=== PATIENT | female | born 1960 | race African-American/Black ===

== ENCOUNTER 2017-07-10 20:12 | Emergency (ER) | payer MEDICAID ==
[~2017-07-10] VITALS: Ht 162.6 cm; Wt 69.4 kg
[~2017-07-10 20:12] MED LIST: CYCLOBENZAPRINE10 MG ORAL; IBUPROFEN600 MG ORAL; NORCO 5-325 TA1 EACH ORAL
[2017-07-10 20:33] VITALS: BP 117/73
[2017-07-10] MEDS ORDERED: Isovue-300 100ml vial INJ PRN (20:45)
[2017-07-10] MEDS ORDERED: Lidocaine 2% Visc 15ml soln ORAL ONE (20:45)
[2017-07-10] MEDS ORDERED: Dicyclomine HCl 10mg/5ml oral soln ORAL ONE (20:45)
[2017-07-10] MEDS ORDERED: Mylanta II UD 30ml ORAL ONE (20:45)
[2017-07-10 21:33] LABS: BASOPHILS % (AUTO) 0.9 % (0.0-2.0); EOSINOPHILS % (AUTO) 2.3 % (0.0-3.0); HEMOGLOBIN 13.7 G/DL (12.0-16.0); LYMPHOCYTES % (AUTO) 40.8 % (20.0-45.0); MEAN CORPUSCULAR VOLUME 88 FL (80-99); MONOCYTES % (AUTO) 6.5 % (1.0-10.0); NEUTROPHILS % (AUTO) 49.6 % (45.0-75.0); PLATELET COUNT 158 K/UL (150-450); RED BLOOD COUNT 4.55 M/UL (4.20-5.40); RED CELL DISTRIBUTION WIDTH 11.9 % (11.6-14.8); WHITE BLOOD COUNT 7.4 K/UL (4.8-10.8)
[2017-07-10 21:35] LABS: APPEARANCE,URINE CLEAR; BILIRUBIN, URINE NEGATIVE (NEGATIVE); COLOR,URINE PALE YELLOW; GLUCOSE, URINE (UA) NEGATIVE (NEGATIVE); KETONES,URINE NEGATIVE (NEGATIVE); LEUKOCYTE ESTERASE ,URINE 1+ (NEGATIVE); NITRITE,URINE NEGATIVE (NEGATIVE); PH,URINE 5 (4.5-8.0); PROTEIN,URINE NEGATIVE (NEGATIVE); UROBILINOGEN,URINE 1 MG/DL (0.0-1.0)
[2017-07-10 21:42] LABS: ANION GAP 8 mmol/L (5-15); BLOOD UREA NITROGEN 17 mg/dL (7-18); CALCIUM 9.4 MG/DL (8.5-10.1); CARBON DIOXIDE 27 MMOL/L (21-32); CHLORIDE 104 MMOL/L (98-107); CREATININE 0.9 MG/DL (0.55-1.30); POTASSIUM 3.8 MMOL/L (3.5-5.1); SODIUM 139 MMOL/L (136-145)
[2017-07-10 21:47] LABS: ALANINE AMINOTRANSFERASE 93 U/L (12-78); ALBUMIN 3.9 G/DL (3.4-5.0); ALBUMIN/GLOBULIN RATIO 1.1 (1.0-2.7); ALKALINE PHOSPHATASE 105 U/L (46-116); ASPARTATE AMINO TRANSFERASE 31 U/L (15-37); BILIRUBIN,TOTAL 0.2 MG/DL (0.2-1.0)
[2017-07-10] MEDS ORDERED: DICYCLOMINE HCL10 MG PO (22:20)
[2017-07-10] MEDS ORDERED: PRILOSEC OTC20 MG ORAL (22:20)
--- NOTE | 2017-07-10 22:28 | Diagnostic Imaging Report ---
EXAM: CT Abdomen and Pelvis With Intravenous Contrast CLINICAL HISTORY: PAIN TECHNIQUE: Axial computed tomography images of the abdomen and pelvis with intravenous contrast. CTDI is 0.15, 13.01 mGy and DLP is 659 mGy-cm. One or more of the following dose reduction techniques were used: automated exposure control, adjustment of the mA and/or kV according to patient size, use of iterative reconstruction technique. COMPARISON: No relevant prior studies available. FINDINGS: Lung bases: Dependent atelectasis. ABDOMEN: Liver: Unremarkable. Gallbladder and bile ducts: Unremarkable. Pancreas: Unremarkable. Spleen: Unremarkable. Adrenals: Unremarkable. Kidneys and ureters: Unremarkable. Stomach and bowel: Bowel wall thickening in the small bowel which may be secondary to underdistention versus a nonspecific enteritis. Postsurgical changes within the gastric antrum. Moderate bowel wall thickening at the gastric antrum near the anastomosis. PELVIS: Appendix: Appendix is unremarkable. Bladder: Unremarkable. Reproductive: Myomatous uterus. ABDOMEN and PELVIS: Intraperitoneal space: Unremarkable. Bones/joints: No acute fracture. No dislocation. Soft tissues: Unremarkable. Vasculature: Calcific and noncalcific atheromatous disease of the abdominal aorta and proximal branches. No abdominal aortic aneurysm. Lymph nodes: Unremarkable. IMPRESSION: 1. Bowel wall thickening in the small bowel which may be secondary to underdistention versus a nonspecific enteritis. 2. Postsurgical changes within the gastric antrum. There is moderate bowel wall thickening at the gastric antrum near the anastomosis. Findings may represent nonspecific gastritis. If there is a history of malignancy, recurrence is not excluded.
[2017-07-10 22:40] VITALS: BP 123/71
--- NOTE | 2017-07-11 15:05 | Emergency Room Report ---
History of Present Illness General Chief Complaint: Abdominal Pain Source: Patient Present Illness HPI Patient is a 56-year-old female who presented after increased abdominal discomfort. Patient had gradual onset of symptoms. Patient had previous history of pancreatic disease and had previous surgery for pancreatic cyst. The patient states that she had been visiting from [place]. The patient reports having increased the bloating as well as increased belching. She denies any fever. She had not been vomiting. She denies any black or bloody stools. The patient reported having had increased discomfort. The pain waxed and waned. It did not radiate. 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 Review of Systems All Other Systems: negative except mentioned in HPI Physical Exam Vital Signs Date Time Temp Pulse Resp B/P (MAP) Pulse Ox O2 Delivery O2 Flow Rate FiO2 07/10/17 20:21 98.6 93 18 114/78 94 98.6 07/10/17 20:33 Room Air Sp02 EP Interpretation: reviewed, normal General Appearance: normal inspection, well appearing, no apparent distress, alert, GCS 15 Head: atraumatic ENT: normal ENT inspection, hearing grossly normal, normal voice Neck: normal inspection, full range of motion, supple, no bony tend Respiratory: normal inspection, lungs clear, normal breath sounds, no respiratory distress, no retraction, no wheezing Cardiovascular #1: regular rate, rhythm, no edema Gastrointestinal: normal inspection, normal bowel sounds, non tender, soft, no guarding, no hernia Genitourinary: no CVA tenderness Musculoskeletal: normal inspection, back normal, normal range of motion Neurologic: normal inspection, alert, responsive, speech normal Psychiatric: normal inspection, judgement/insight normal, mood/affect normal Skin: normal inspection, normal color, no rash Medical Decision Making Diagnostic Impression: Primary Impression: Abdominal pain ER Course Patient presented for abdominal pain. Differential diagnoses included ischemic bowel, appendicitis, perforated viscus, abdominal aortic aneurysm, inferior myocardial infarction, viral gastroenteritis Because of complexity of patient's case laboratory testing and imaging studies were ordered. The laboratory studies were unremarkable. Patient had CT imaging of the abdomen and pelvis read by radiology which showed some nonspecific thickening of the stomach as well as the intestine. The patient is advised follow-up with her smelter liner for further evaluation and treatment.The patient is advised to follow up with primary care doctor in 1-2 days. Patient is advised to return if any worsening condition or if any changes in status that are concerning. This report is dictated with [employer] liquid compounder software which may occasionally lead to discrepancies related to use of this software. Labs Test 07/10/17 21:15 White Blood Count 7.4 K/UL (4.8-10.8) Red Blood Count 4.55 M/UL (4.20-5.40) Hemoglobin 13.7 G/DL (12.0-16.0) Hematocrit 40.0 % (37.0-47.0) Mean Corpuscular Volume 88 FL (80-99) Mean Corpuscular Hemoglobin 30.2 PG (27.0-31.0) Mean Corpuscular Hemoglobin Concent 34.4 G/DL (32.0-36.0) Red Cell Distribution Width 11.9 % (11.6-14.8) Platelet Count 158 K/UL (150-450) Mean Platelet Volume 9.7 FL (6.5-10.1) Neutrophils (%) (Auto) 49.6 % (45.0-75.0) Lymphocytes (%) (Auto) 40.8 % (20.0-45.0) Monocytes (%) (Auto) 6.5 % (1.0-10.0) Eosinophils (%) (Auto) 2.3 % (0.0-3.0) Basophils (%) (Auto) 0.9 % (0.0-2.0) Urine Color Pale yellow Urine Appearance Clear Urine pH 5 (4.5-8.0) Urine Specific [place] 1.020 (1.005-1.035) Urine Protein Negative (NEGATIVE) Urine Glucose (UA) Negative (NEGATIVE) Urine Ketones Negative (NEGATIVE) Urine Occult Blood 2+ (NEGATIVE) Urine Nitrite Negative (NEGATIVE) Urine Bilirubin Negative (NEGATIVE) Urine Urobilinogen 1 MG/DL (0.0-1.0) Urine Leukocyte Esterase 1+ (NEGATIVE) Urine RBC 5-10 /HPF (0 - 2) Urine WBC 2-4 /HPF (0 - 2) Urine Squamous Epithelial Cells Few /LPF (NONE/OCC) Urine Bacteria Few /HPF (NONE) Sodium Level 139 MMOL/L (136-145) Potassium Level 3.8 MMOL/L (3.5-5.1) Chloride Level 104 MMOL/L (98-107) Carbon Dioxide Level 27 MMOL/L (21-32) Anion Gap 8 mmol/L (5-15) Blood Urea Nitrogen 17 mg/dL (7-18) Creatinine 0.9 MG/DL (0.55-1.30) Estimat Glomerular Filtration Rate > 60 mL/min (>60) Glucose Level 103 MG/DL (74-106) Calcium Level 9.4 MG/DL (8.5-10.1) Total Bilirubin 0.2 MG/DL (0.2-1.0) Aspartate Amino Transf (AST/SGOT) 31 U/L (15-37) Alanine Aminotransferase (ALT/SGPT) 93 U/L (12-78) Alkaline Phosphatase 105 U/L (46-116) Total Protein 7.6 G/DL (6.4-8.2) Albumin 3.9 G/DL (3.4-5.0) Globulin 3.7 g/dL Albumin/Globulin Ratio 1.1 (1.0-2.7) Lipase 135 U/L (73-393) Last Vital Signs Date Time Temp Pulse Resp B/P (MAP) Pulse Ox O2 Delivery O2 Flow Rate FiO2 07/10/17 22:40 98.6 72 17 123/71 97 Room Air 98.6 Status: improved Disposition: HOME, SELF-CARE Condition: Stable Scripts Dicyclomine Hcl* (DICYCLOMINE HCL*) 10 Mg Capsule 10 MG PO QID, #30 CAP Prov: Ran Méndez MD 07/10/17 Omeprazole Magnesium (PRILOSEC OTC) 20 Mg Tablet. 20 MG ORAL DAILY, #14 TAB Prov: Ran Méndez MD 07/10/17 Patient Instructions: Abdominal Pain, Adult Ran Méndez MD July 11, 2017 15:05
--- NOTE | 2017-07-13 13:57 | Cardiology Report ---
APPROVED REPORT EKG Measurement Heart [id number] Normal sinus rhythm Nonspecific T wave abnormality Abnormal ECG
== END 2017-07-10 22:40 | disposition home or self-care (01) ==
LOC: EMR 21:03
DX: R10.9 Unspecified abdominal pain (principal); Z87.19 Personal history of other diseases of the digestive system
CPT/HCPCS: 36415; 74177; 80053; 81003; 83690; 85025; 93005; 99284; Q9967

== ENCOUNTER 2017-11-15 16:28 | Emergency (ER) | payer MEDICAID ==
[~2017-11-15] VITALS: Ht 162.6 cm; Wt 68.0 kg
[~2017-11-15 16:28] MED LIST changes: +DICYCLOMINE HCL10 MG PO; +PRILOSEC OTC20 MG ORAL
[2017-11-15] MEDS ORDERED: NKM (16:42)
[2017-11-15] MEDS ORDERED: Acetaminophen 500mg (ES) tab ORAL ONE (17:00)
[2017-11-15] MEDS ORDERED: Methocarbamol 500mg tab ORAL ONE (17:00)
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
[2017-11-15 17:14] VITALS: BP 129/82
[2017-11-15] MEDS ORDERED: ROBAXIN500 MG PO (18:04)
[2017-11-15] MEDS ORDERED: TYLENOL EXTRA500 MG ORAL (18:04)
[2017-11-15] MEDS ORDERED: LIDOCAINE700 M1 TP (18:04)
[2017-11-15 18:15] VITALS: BP 116/79
--- NOTE | 2017-11-16 15:11 | Diagnostic Imaging Report ---
Indication: Pain status post injury Technique: XRAY Shoulder Compl L Comparison: None Findings: Bone mineralization within normal limits. There is no evidence of acute fracture. Glenohumeral and acromioclavicular joints are maintained. Imaged portions of the left lung are grossly clear. No radiopaque foreign body identified. Impression: No evidence of acute fracture or dislocation.
--- NOTE | 2017-11-16 15:13 | Diagnostic Imaging Report ---
Indication: Pain status post injury Technique: XRAY Elbow Min 3v R Comparison: None Findings: Bone mineralization appears within normal limits. There is no 10/displaced acute fracture. No elbow joint effusion. Question tiny triceps tendon enthesophytes. No radiopaque foreign body identified. Impression: No evidence of acute fracture or dislocation. No elbow joint effusion.
--- NOTE | 2017-11-16 15:15 | Diagnostic Imaging Report ---
Indication: Pain status post injury Technique: XRAY C Spine 2-3v Comparison: None Findings: No abnormal cervical curvature noted on frontal view. There is straightening of the cervical lordosis on lateral view. There is no evidence of acute fracture. Vertebral body heights are maintained. No evidence of dens fracture on open mouth view. There are degenerative changes of the cervical spine with disc space narrowing and multilevel osteophytes. No prevertebral soft tissue swelling is identified. Imaged portions of the lung apices grossly unremarkable. IMPRESSION: Overall mild degenerative change of the cervical spine with mild straightening of the cervical lordosis. No evidence of acute fracture.
--- NOTE | 2017-11-16 15:16 | Diagnostic Imaging Report ---
Indication: Pain status post injury Technique: XRAY L Spine Ltd Comparison: None Findings: Bone mineralization appears within normal limits. There are 5 nonrib-bearing lumbar-type vertebral bodies, assuming 12 paired ribs. Lumbar lordosis is maintained. There is no evidence of acute fracture. Vertebral body heights are maintained. There is degenerative change with some disc space narrowing at L5-S1 and some small multilevel osteophytes. Sacroiliac joints and hip joints grossly preserved. Bowel gas pattern is unremarkable. No radiopaque foreign body identified. Atherosclerotic calcifications noted. Impression: No evidence of acute fracture or traumatic malalignment. Mild degenerative change.
== END 2017-11-15 18:15 | disposition home or self-care (01) ==
LOC: EMR 17:00
DX: S16.1XXA Strain of muscle, fascia and tendon at neck level, initial encounter (principal); V43.52XA Car driver injured in collision with other type car in traffic accident, initial encounter; M25.512 Pain in left shoulder; M25.521 Pain in right elbow; Y92.488 Other paved roadways as the place of occurrence of the external cause
CPT/HCPCS: 72020; 72040; 99284